=== PATIENT | male | born 1975 | race Two or more races ===

== ENCOUNTER 2025-01-02 20:38 | Emergency (ER) | payer OTHER ==
[~2025-01-02] VITALS: Ht 180.3 cm; Wt 118.5 kg
[2025-01-02 20:55] VITALS: BP 157/97; PULSE 88; RESP 18; TEMP 98.6; O2SAT 97
[2025-01-02] MEDS ORDERED: AMLO1TAB22 PO (21:21)
--- NOTE | 2025-01-02 21:29 | ED.PDOC ---
Epistaxis- HPI HPI Comments 49-year-old male who came to ER due to nosebleeding. Patient denies any medical problems, denies taking any medications. States for the past 3 days, he has been having intermittent episodes of left-sided epistaxis. Denies any recent trauma. Denies any history of epistaxis. Patient went to urgent Care earlier but does advised to proceed directly to the ER. Blood pressure upon arrival was 157/97 mm Hg. Chief Complaint: Nose Bleed Time Seen by MD: 21:29 Reviewed Notes: Nurses Notes Allergies: Coded Allergies: NO KNOWN ALLERGIES (Unverified , 01/02/25) Home Meds Active Scripts Amlodipine Besylate (Amlodipine Besylate) 5 Mg Tab, 1 TAB PO DAILY for 90 Days, #90 TAB 5 Refills Prov:SATISH PAGE MD 01/02/25 Information Source: Patient Mode of Arrival: Ambulatory Severity: Streaking Timing: Days Duration: Intermittent Prehospital treatment: None Location: Left naris Mechanism: Spontaneous onset Use of: None History of: None Nose: Swelling, Ecchymosis Nose: Intranasal/Septum: Blood Bleeding Status: Active bleeding Bleeding Amount: Mild Source: Left Associated signs and symptoms: None Past Medical History PAST MEDICAL HISTORY: Denies Surgical History: Denies all surgeries Family History Family History: Reviewed,noncontributory to illness Social History Smoker: Non-Smoker Alcohol: Denies ETOH Use Drugs: Denies Drug Use Lives In: Home Constitutional: denies: chills, diaphoresis, fatigue, fever, malaise, sweats, weakness, others EENTM: reports: nose bleeding (Left); denies: blurred vision, double vision, ear bleeding, ear discharge, ear drainage, ear pain, ear ringing, eye pain, eye redness, hearing loss, mouth pain, mouth swelling, nasal discharge, nose congestion, nose pain, photophobia, tearing, throat pain, throat swelling, voice changes, others Respiratory: denies: cough, hemoptysis, orthopnea, SOB at rest, shortness of breath, SOB with excertion, stridor, wheezing, others Cardiovascular: denies: chest pain, dizzy spells, diaphoresis, Dyspnea on exertion, edema, irregular heart beat, left arm pain, lightheadedness, palpitations, PND, syncope, others Gastrointestinal: denies: abdomen distended, abdominal pain, blood streaked bowels, constipated, diarrhea, dysphagia, difficulty swallowing, hematemesis, melena, nausea, poor appetite, poor fluid intake, rectal bleeding, rectal pain, vomiting, others Genitourinary: denies: burning, dysuria, flank pain, frequency, hematuria, incontinence, penile discharge, penile sore, pain, testicle pain, testicle swelling, urgency, others Neurological: denies: dizziness, fainting, headache, left sided numbness, left sided weakness, numbness, paresthesia, pre-existing deficit, right sided numbness, right sided weakness, seizure, speech problems, tingling, tremors, weakness, others Musculoskeletal: denies: back pain, gout, joint pain, joint swelling, muscle pain, muscle stiffness, neck pain, others Integumetry: denies: bruises, change in color, change in hair/nails, dryness, laceration, lesions, lumps, rash, wounds, others Allergic/Immunocompromised: denies: Difficulty Healing, Frequent Infections, Hives, Itching, others Hematologic/Lymphatic: denies: anemia, blood clots, easy bleeding, easy bruising, swollen glands, others Endocrine: denies: excessive hunger, excessive sweating, excessive thirst, excessive urination, flushing, intolerance to cold, intolerance to heat, unexplained weight gain, unexplained weight loss, others Psychiatric: denies: anxiety, bipolar disorder, depression, hopeless, panic disorder, schizophrenia, sleepless, suicidal, others Physical Exam General Appearance: No Apparent Distress, Normal HEENT: Normal ENT Inspection, Pharynx Normal, TMs Normal Neck: Full Range of Motion, Non-Tender, Normal, Normal Inspection Respiratory: Chest Non-Tender, Lungs Clear, No Accessory Muscle Use, No Respiratory Distress, Normal Breath Sounds Cardiovascular: No Edema, No JVD, No Murmur, No Gallop, Normal Peripheral Pulses, Regular Rate/Rhythm Breast Exam: Deferred Gastrointestinal: No Organomegaly, Non Tender, No Pulsatile Mass, Normal Bowel Sounds, Soft Genitalia: Deferred Pelvic: Deferred Rectal: Deferred Extremities: No calf tenderness, Normal capillary refill, Normal inspection, Normal range of motion, Non-tender, No pedal edema Musculoskeletal : Apperance: Normal Neurologic: Alert, 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 Was a procedure done?: No Differential Diagnosis (NSB) Differential Diagnosis: Anterior Nasal Bleed, Posterior Nasal Bleed, Hypert ension X-Ray, Labs, Meds, VS Vital Signs Date Time Temp Pulse Resp B/P (MAP) Pulse Ox O2 Delivery O2 Flow Rate FiO2 01/03/25 00:00 Room Air* 0 21 01/02/25 23:50 167/111 01/02/25 20:55 98.6 88 18 157/97 (117) 97 98.6 Current Medications Medications (Trade) Dose Ordered Sig/Jany Route Start Time Stop Time Status Last Admin Clonidine HCl (Catapres Tablet) 0.2 mg ONCE ONCE PO 01/02/25 21:30 01/02/25 21:31 DC 01/02/25 23:50 Time of 1ST Reevaluation: 21:25 Reevaluation 1ST: Unchanged Patient Education/Counseling: Diagnosis, Treatment Family Education/Counseling: No Family Present Departure 1 Departure Time of Disposition: 23:30 Impression: Primary Impression: Hypertension Additional Impression: Anterior epistaxis Disposition: 01 HOME / SELF CARE / HOMELESS Condition: Stable Additional Instructions: Follow up with your Primary Physician Return to the Emergency Department for any worsening symptoms or concerns e-Prescriptions Amlodipine Besylate (Amlodipine Besylate) 5 Mg Tab 1 TAB PO DAILY for 90 Days, #90 TAB 5 Refills Prov: SATISH PAGE MD 01/02/25 Discharged With: Self Critical Care Note Critical Care Time?: No Stability Stability form required: No Heart Score Heart Score: Heart Score Response (Comments) Value History N/A 0 EKG N/A 0 Age N/A 0 Risk Factors N/A 0 Troponin N/A 0 Total 0 I personally scribed for SATISH PAGE MD ([email or web address]) on 01/02/25 at 21:29. Electronically submitted by Ricky Rock ([facility]). SATISH PAGE MD January 02, 2025 21:29
[2025-01-02] MEDS: cloNIDine HCL 0.1 MG TAB PO ONE (23:50)
== END 2025-01-03 00:10 | disposition home or self-care (01) ==
LOC: ER 20:38
DX: R04.0 Epistaxis (principal); I10 Essential (primary) hypertension; Z79.899 Other long term (current) drug therapy